=== PATIENT | female | born 2000 | race African-American/Black ===

== ENCOUNTER 2020-11-28 12:42 | Emergency (ER) | payer OTHER, SELFPAY ==
[2020-11-28 12:53] VITALS: BP 109/69; PULSE 84; RESP 16; TEMP 36.2; O2SAT 100
--- NOTE | 2020-11-28 12:56 | ED.WOUNDLAC ---
HPI - Wound/Laceration General Chief Complaint: Wound/Laceration Stated Complaint: Laceration on arm Source: patient and RN notes reviewed Limitations: no limitations History of Present Illness HPI narrative: The patient, who has a previous history of mood disorder, presents with laceration. Patient states she has a self-induced laceration of her right forearm with a razor last night, which is superficial- but deeper than the healing cuts she has self sustained in the past on the opposite arm. She has a prior history of mood disorder on Cymbalta which she is out of [which will be refilled], and feels the injury was prompted by the stress of her recent move this week to the area. No arm numbness/weakness, nor decreased ROM; No suicidal/homicidal ideation, guilt, concentration loss,wt gain/ loss, insomnia, physical or substance abuse now -she has used in the past. Discussed with patient and family that the injury is a day old, and will only do loose approximation with filipe, and Steri-Strip the rest. And will provide reference to outpatient psychological services Related Data Allergies Allergy/AdvReac Type Severity Reaction Status Date / Time No Known Drug Allergies Allergy Unknown Unverified 05/05/15 16:05 Review of Systems Review of Systems: Narrative: General/Constitutional: No weight loss,fever Eyes: N0: Redness,discharge Ears/Nose/Throat: No: Epistaxis,ear discharge Respiratory: Denies: Hemoptysis Gastrointestinal: No Vomiting, Bleeding-rectal Skin: No Lumps, eruption Neurologic: No Focal Weakness,Sz Hematologic: Denies: Petechiae/Purpura Psychiatric: No: Suicida ideationl All Other Systems: Reviewed and Negative PMFSH Comments At time of signature, agree with nursing past medical, surgical, social and family history. There is no relevant family history pertinent to the presenting complaint Exam Narrative: Exam Narrative: General Appearance: Well appearing, No distress EYE: PERRLA, Conjunctiva clear Ears: External ear normal Nose: Normal nose Mouth/Throat: Normal appearing, Normal lips Neck: Supple Respiratory: Airway patent, No respiratory distress Cardiovascular: RRR Abdomen: Soft, Musculoskeletal: Full ROM, strength Skin: Warm, Dry, well superficial 2.5 cm laceration of the flexor forearm Neurological: A&O x3, CN II-X intact Psychiatric: Normal mood, Normal affect Course Vital Signs Vital signs: Vital Signs Temperature 97.1 F L 11/28/20 12:53 Pulse Rate 84 11/28/20 12:53 Respiratory Rate 16 11/28/20 12:53 Blood Pressure 109/69 11/28/20 12:53 Pulse Oximetry 100 11/28/20 12:53 Temperature 97.1 F L 11/28/20 12:53 Pulse Rate 84 11/28/20 12:53 Respiratory Rate 16 11/28/20 12:53 Blood Pressure 109/69 11/28/20 12:53 Pulse Oximetry 100 11/28/20 12:53 Procedures Laceration Laceration 1: Date: 11/28/20 Site: upper extremity Size (cm): 2.5 Description: linear Depth: simple, single layer Pre-repair: irrigated ====== Skin Level ====== Skin layer closed with: filipe Number of sutures: 2 ====== Subcutaneous Layer ====== ====== Muscle Layer ====== ====== Tendon Layer ====== Discharge Plan Discharge Clinical Impression: Forearm laceration Qualifiers: Encounter type: initial encounter Laterality: right Qualified Code(s): S51.811A - Laceration without foreign body of right forearm, initial encounter Adjustment disorder Qualifiers: Adjustment disorder type: unspecified type Qualified Code(s): F43.20 - Adjustment disorder, unspecified Patient Disposition: Home, Self-Care Condition: Stable Instructions: Laceration (ED) Additional Instructions: Remove 2 filipe in about 7 to 10 days, and then Steri-Strip/butterfly bandage See local agencies like [facility], [place] [reference provided], or get PMD in follow-up Prescriptions: New mupirocin 2 % ointment 1
[2020-11-28] MEDS: LIDOCAINE, EPINEPHRINE, TETRACAINE VISCOUS SOLN 3 ML TOPICAL (13:03)
== END 2020-11-28 13:49 | disposition home or self-care (01) ==
PROVIDERS: Emergency Provider Emergency Medicine
DX: S51.811A Laceration without foreign body of right forearm, initial encounter (principal); X78.9XXA Intentional self-harm by unspecified sharp object, initial encounter; F43.24 Adjustment disorder with disturbance of conduct; F39 Unspecified mood [affective] disorder
CPT/HCPCS: 12001; 99213; G0463